=== PATIENT | male | born 1955 | race Asian ===

== ENCOUNTER 2018-02-23 07:18 | Day surgery (SDC) | payer OTHER ==
[2018-02-23] MEDS ORDERED: MIDAZOLAM 1 MG/ML 2 ML INJ (10:32)
[2018-02-23] MEDS ORDERED: MEPERIDINE 50 MG INJ (11:00)
== END 2018-02-23 11:29 | disposition home or self-care (01) ==
LOC: GIL 07:18
DX: Z12.11 Encounter for screening for malignant neoplasm of colon (principal); K64.8 Other hemorrhoids
CPT/HCPCS: 45378; 88305